=== PATIENT | female | born 1965 | race Caucasian/White ===

== ENCOUNTER → 2016-04-08 | Outpatient (CLI) | payer OTHER | LOC: MC.RAD 14:30 | DX: R92.0 Mammographic microcalcification found on diagnostic imaging of breast (principal) ==

== ENCOUNTER → 2016-10-02 | Outpatient (CLI) | payer OTHER | LOC: MC.RAD 10:00 | DX: R92.1 Mammographic calcification found on diagnostic imaging of breast (principal) ==

== ENCOUNTER → 2016-10-08 | Outpatient (CLI) | payer OTHER | LOC: MC.RAD 07:00 | DX: R92.0 Mammographic microcalcification found on diagnostic imaging of breast (principal); N60.92 Unspecified benign mammary dysplasia of left breast ==

== ENCOUNTER → 2017-05-25 | Outpatient (CLI) | payer OTHER | LOC: MC.RAD 07:30 | DX: N63.20 Unspecified lump in the left breast, unspecified quadrant (principal) ==

== ENCOUNTER → 2018-04-09 | Outpatient (CLI) | payer OTHER | LOC: COL.RAD 09:44 | DX: M51.26 Other intervertebral disc displacement, lumbar region (principal); M48.061 Spinal stenosis, lumbar region without neurogenic claudication; M51.37 Other intervertebral disc degeneration, lumbosacral region | CPT/HCPCS: A9585 ==

== ENCOUNTER → 2023-09-30 | Outpatient (CLI) | payer OTHER | LOC: MC.RAD 13:52 | DX: N63.10 Unspecified lump in the right breast, unspecified quadrant (principal); N64.89 Other specified disorders of breast ==